=== PATIENT | male | born 1985 | race Caucasian/White ===

== ENCOUNTER 2020-09-22 16:50 | Emergency (ER) | payer SELFPAY ==
[~2020-09-22] VITALS: Ht 180.3 cm; Wt 81.6 kg
[2020-09-22 16:55] VITALS: BP 134/62
[2020-09-22 19:52] LABS: Urine Bacteria NONE SEEN /hpf (None Seen); Urine Blood Negative /uL (Negative); Urine Mucus FEW (None Seen); Urine Specific Gravity 1.033 (1.001-1.035); Urine WBC <1 /hpf (0 - 3)
[2020-09-22 20:01] LABS: Alcohol, Urine < 3.0 mg/dL (0-10); Amphetamine Screen, Urine NEGATIVE (NEGATIVE); Barbiturate Scree,Urine NEGATIVE (NEGATIVE); Benzodiazephine Screen, Urine NEGATIVE (NEGATIVE); Cannabinoid Screen, Urine NEGATIVE (NEGATIVE); Cocaine Screen, Urine NEGATIVE (NEGATIVE); Opiate Scree,Urine NEGATIVE (NEGATIVE); Phencyclidine Screen, Urine NEGATIVE (NEGATIVE)
[2020-09-22] MEDS ORDERED: cefTRIAXone SOD 1,000 MG VL IM ONE (20:15)
== END 2020-09-22 20:28 | disposition left against medical advice (07) ==
LOC: ER 16:50
DX: A60.01 Herpesviral infection of penis (principal); N48.22 Cellulitis of corpus cavernosum and penis
CPT/HCPCS: 80307; 81001

== ENCOUNTER 2020-12-18 16:03 | Emergency (ER) | payer SELFPAY ==
[~2020-12-18] VITALS: Ht 180.3 cm; Wt 81.6 kg
[2020-12-18 16:08] VITALS: BP 118/82
== END 2020-12-18 17:51 | disposition home or self-care (01) ==
LOC: ER 16:04
DX: S01.81XA Laceration without foreign body of other part of head, initial encounter (principal); F17.210 Nicotine dependence, cigarettes, uncomplicated; X58.XXXA Exposure to other specified factors, initial encounter; Y93.89 Activity, other specified; Y92.89 Other specified places as the place of occurrence of the external cause; Y99.8 Other external cause status